=== PATIENT | male | born 1955 | race Caucasian/White ===

== ENCOUNTER 2019-06-25 10:35 | Day surgery (SDC) | payer OTHER ==
[~2019-06-25] VITALS: Ht 185.4 cm; Wt 84.4 kg
[~2019-06-25 10:35] MED LIST: VITAMIN C1000 MG PO; VITAMIN D325 MC4 PO
--- NOTE | 2019-06-30 15:30 | PATH ---
[facility] [address] [place], [place] [address] Signed SPECIMEN(S): C COMPREHENSIVE FLOW CYTOMETRY, BM EDTA SPECIMEN(S): A BONE MARROW - CORE SPECIMEN(S): B BONE MARROW - ASPIRATION CLINICAL HISTORY: 63-year-old man with chronic lymphocytosis with variable neutropenia and anemia, evaluate for chronic lymphoproliferative syndrome. D72.820 (lymphocytosis [symptomatic]). DIAGNOSIS SUMMARY: A. Peripheral blood - Relative lymphocytosis. - Mild relative and absolute neutropenia. B. 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 - See Diagnostic Comment. DIAGNOSTIC COMMENT: In summary, this is a normocellular marrow (40%) involved by low-grade B-cell neoplasm (25%). A concurrent flow cytometry reveals a distinct population (12%) of dim kappa-restricted B-cells expressing CD19 (dim), CD20 (dim), CD23 (dim,annika), CD22 (dim), and CD200 (dim), and negative for CD5, CD10, CD38, FMC7, CD11c, CD25, CD103, and CD123. The phenotype is not specific with some features raise a consideration of CD5-negative chronic lymphocytic leukemia/small lymphocytic. The differential diagnosis includes other CD5-negative [id number] low-grade B-cell neoplasm, such as lymphoplasmacytic lymphoma, marginal zone lymphoma, etc. Per Dr. Bradford, there is no clinical evidence of lymphadenopathy or splenomegaly. Laboratory study for serum protein electrophoresis is recommended. Pending FISH study will be reported by addendum. The findings were discussed with Dr. Karen Bradford on 06/30/2019. As a policy for [employer], this case was reviewed by an additional pathologist. LY:GP:smn:C1NR PERIPHERAL BLOOD: HEMOGRAM ([facility]; 06/25/2019): WBC 4.9 K/uL, RBC 4.61 M/uL, HGB 14.1 g/dL, HCT 42.2%, MCV 91.5 fL, MCH 31 pg, MCHC 33 g/dL, RDW 13.7%, PLT 221 K/uL. PATIENT NAME: TIFFANI LINK PATHOLOGY DATE OF : 53 REPORT #: [id number] PHYSICIAN: RAI PATHOLOGY PCP: ANIKET QUILES MD REPORT IS CONFIDENTIAL AND NOT TO BE RELEASED WITHOUT AUTHORIZATION [facility] [address] [place], [place] [address] Signed MANUAL DIFFERENTIAL COUNT: Bands 1%, segmented neutrophils 34%, lymphocytes 55%, monocytes 7%, eosinophils 3%. The red blood cells are normal in number with normal hemoglobin and hematocrit, and are normocytic and normochromic without overt anisocytosis. The white blood cells are normal in number and are morphologically unremarkable. No circulating blasts are identified. There is relative increase in lymphocytes and mild relative and absolute neutropenia. The platelets are normal in number and morphologically unremarkable. BONE MARROW: ASPIRATE SMEAR: The aspirate smears show cellular particles. There is significant increase in small lymphoid cells, accounting for 77% of cellularity. A few erythroid precursors show maturation. A few myeloid precursors show full maturation. There is no increase in blasts. A few megakaryocytes are morphologically unremarkable. The lymphocytes include predominantly of small mature lymphoid cells with slightly irregular nuclei, condensed chromatin, inconspicuous nucleoli, and scant cytoplasm. BONE MARROW DIFFERENTIAL COUNT (200 cells): Myelocytes 3%, metamyelocytes 2%, bands 1%, segmented neutrophils 5%, lymphocytes 77%, plasma cells 1%, monocytes 1%, eosinophils 3%, basophils 1%, nucleated RBCs 6%. The myeloid:erythroid ratio is not evaluable. BONE MARROW CORE BIOPSY/ASPIRATE CLOT CELL BLOCK: The core biopsy (two segments, 1.3 cm in greatest dimension) shows trabecular bone with normocellular marrow (40%) for age. Interstitial sizable nodular infiltrate composed predominantly of small lymphoid account for 25% of cellularity. Focally the lymphoid infiltrate shows paratrabecular localization. The erythroid precursors show maturation. The myeloid precursors are mild left shifted and show full maturation. There is no increase in blasts. Scattered megakaryocytes are morphologically unremarkable. A few scattered plasma cells account for less than 5% cellularity. The aspirate clot shows small fragments of cellular marrow with similar morphology. SPECIAL STAINS (with adequate controls): - Iron (aspirate smear): Storage iron present; ring sideroblasts not identified. - Iron (aspirate clot): Storage iron absent; ring sideroblasts not identified. IMMUNOHISTOCHEMICAL STAINS (performed on block A1 with adequate controls): - CD3: Stains scattered and focally clustered small T-cells. PATIENT NAME: TIFFANI LINK PATHOLOGY DATE OF : 53 REPORT #: [id number] PHYSICIAN: RAI JONES PCP: ANIKET QUILES MD REPORT IS CONFIDENTIAL AND NOT TO BE RELEASED WITHOUT AUTHORIZATION [address] [address] Signed - CD5: Stains scattered and focally clustered small T-cells; appears to be negative in B-cell infiltrate. - CD20: Highlights predominantly clustered and fewer scattered B-cell infiltrate (25%). - PAX5: Positive in clustered and scattered B-cell infiltrate. - Cyclin D1: Negative in B-cell infiltrate. - CD23: Positive in clustered and scattered B-cell infiltrate. LY:smn FLOW CYTOMETRY: Bone marrow, aspirate, flow cytometry: - National restricted B cell population (12%) identified. - No increase in blasts. - No aberrant T cell population identified. - See Comment. COMMENT: In summary, flow cytometry reveals a distinct population of dim kappa restricted B cells (49% of lymphocytes, 12% of total events) expressing CD19(dim), CD20(dim), CD23(dim,annika), CD22(dim) and CD200(dim), and negative for CD5, CD10, CD38, FMC7, CD11c, CD25, CD103 and CD123. The immunophenotypic differential diagnosis includes monoclonal B cell lymphocytosis, CD5-negative chronic lymphocytic leukemia/small lymphocytic lymphoma, and other CD5-negative [id number] low grade B cell neoplasm. Correlation with morphologic findings is recommended for full evaluation. FLOW CYTOMETRY ANALYSIS: FLOW DIFFERENTIAL (% Total CD45 vs. SSC gating): Myeloid 61%; Lymphoid 25%; Monocyte 3%; Dim CD45/Blast: 1%. Cell Count: 4.8 x 10*3/uL. POPULATION ANALYSIS: BLASTS: Analysis of the dim CD45 gate demonstrates 1% myeloblasts and 1% hematogones. LYMPHOID CELLS: The lymphocyte gate comprises 25% of total events and includes 44% T-cells with a CD4:CD8 ratio of 1.4:1 and normal sanchez T-cell antigen expression. 49% of lymphocytes (12% of total events) are kappa-restricted B-cells expressing CD45 MOD, CD19 DIM, CD20 DIM, CD23 DIM (variable), CD22 DIM, CD200 DIM and KAPPA DIM while negative for CD5, CD10, CD38, FMC7, CD25, CD11c, CD103 and CD123. The remainders are NK-cells. MYELOID CELLS: The myeloid population comprises 61% of the total events. No aberrant or immature immunophenotypic expression is detected. PATIENT NAME: TIFFANI LINK PATHOLOGY DATE OF : 53 REPORT #: [id number] PHYSICIAN: RAI JONES PCP: ANIKET QUILES MD REPORT IS CONFIDENTIAL AND NOT TO BE RELEASED WITHOUT AUTHORIZATION [facility] [address] [facility] [place], [place] [address] Signed MONOCYTES: The monocyte population comprises 3% of the total events. Monocytes are not increased. No aberrant immunophenotypic expression is detected. PLASMA CELLS: An increased number of CD19 negative plasma cells are observed in the screening gate of CD45 neg-dim/CD38. For this reason, select additional antibodies are run to further characterize the plasma cells. 0.2% polytypic plasma cells are detected (n=212) expressing CD45 DIM-NEG, CD38 BR, CD138 (variable), CD19 DIM (negative in subset) CD56 (minor subset) and negative for CD20 with a ckappa:clambda ratio of 1.1:1. ANTIBODIES USED: KAPPA, LAMBDA, CD20, CD10, CD19, CD23, CD38, FMC7, CD16, CD56, CD8, CD5, CD2, CD4, CD7, CD3, CD14, CD33, CD13, HLADR, CD34, CD117, CD15, CD45, ckappa, clambda, CD138, CD22, CD11c, CD25, CD103, CD123, CD200: TOTAL ANTIBODIES USED: 33. TCS FINAL DIAGNOSIS PERFORMED BY: Gertrude Mccall MD, Pathologist Jun 29 2019 5:17PM FISH ANALYSIS: FISH studies for CLL panel pending, to be reported by addendum. GROSS DESCRIPTION: A. The specimen, received in formalin, labeled "Quan, bone core," consists of two lopez bone cores at 1.3 and 1.7 cm, submitted in (A1) following decalcification in Immunocal for 1.5 hours. B. The specimen, received in formalin, labeled "uQan, clot," consists of a 1.8 x 1.5 x 0.2 cm aggregate of blood clot, entirely submitted in (B1). tn:SIMBA:dutch ADDITIONAL NOTES: This test was developed and its performance characteristics determined by [facility]. It has not been cleared or approved by the US Food and Drug Administration. The FDA does not require this test to go through premarket FDA review. This test is used for clinical purposes. It should not be regarded as investigational or for research. This laboratory is certified under the Clinical Laboratory Improvement Amendments (CLIA) as qualified to perform high complexity clinical laboratory testing. Immunohistochemical and/or in situ hybridization studies were performed on this case with the appropriate positive controls that react as expected. This test was developed and its performance PATIENT NAME: TIFFANI LINK PATHOLOGY DATE OF : 53 REPORT #: [id number] PHYSICIAN: RAI PATHOLOGY PCP: ANIKET QUILES MD REPORT IS CONFIDENTIAL AND NOT TO BE RELEASED WITHOUT AUTHORIZATION [facility] [address] [place] [id number] Signed characteristics determined by [facility]. It has not been cleared or approved by the U.S. Food and Drug Administration. The FDA has determined that such clearance or approval is not necessary. This test is used for clinical purposes. It should not be regarded as investigational or for research. [facility] is certified under the Clinical Laboratory Improvement Amendments of 1988 (CLIA) as qualified to perform high complexity clinical laboratory testing. In this case, certain antibodies were performed by both immunohistochemistry and flow cytometry analysis because flow cytometry analysis did not fully explain all the light microscopic findings. Immunohistochemistry aided in the analysis. Both methods are deemed medically necessary in this case. PERFORMING LABORATORY: The professional interpretation was performed by [facility], [address] [place] [address] (Acid Conditioning Worker: John Russ D.O.; CLIA#: [id number]). Professional interpretation was performed by [facility], [address] [place] [address] (Acid Conditioning Worker: John Russ D.O.; CLIA#: [id number]). IMAGES: [id number]: [id number]: [id number] Diagnostician: Gertrude Mccall MD Pathologist Electronically Signed 06/30/2019 Copies: ~ PATIENT NAME: TIFFANI LINK PATHOLOGY DATE OF : 53 REPORT #: [id number] PHYSICIAN: RAI PATHOLOGY PCP: ANIKET QUILES MD REPORT IS CONFIDENTIAL AND NOT TO BE RELEASED WITHOUT AUTHORIZATION
== END 2019-06-25 14:15 | disposition home or self-care (01) ==
LOC: OPS 10:35 → DS 10:37 → OPS 12:00 → DS 12:00 → OPS 14:15
PROVIDERS: Specialist
PROC: 079T3ZX Drainage of Bone Marrow, Percutaneous Approach, Diagnostic (ICD-10-PCS; 2019-06-25)
PROC: 07DR3ZX Extraction of Iliac Bone Marrow, Percutaneous Approach, Diagnostic (ICD-10-PCS; principal; 2019-06-25 12:00)
DX: C91.10 Chronic lymphocytic leukemia of B-cell type not having achieved remission (principal); D70.9 Neutropenia, unspecified; D64.9 Anemia, unspecified; N40.0 Benign prostatic hyperplasia without lower urinary tract symptoms; E78.2 Mixed hyperlipidemia; Z87.442 Personal history of urinary calculi; Z98.890 Other specified postprocedural states; Z79.899 Other long term (current) drug therapy; Z88.0 Allergy status to penicillin
CPT/HCPCS: 85025; 99152; 99153; J2250; J3010; J7121